=== PATIENT | male | born 1960 | race Caucasian/White ===

== ENCOUNTER → 2016-04-26 | Outpatient (CLI) | payer BC ==
--- NOTE | 2016-04-26 22:16 | XR ---
EXAMINATION TYPE: XR chest 2V DATE OF EXAM: 04/26/2016 5:32 PM COMPARISON: Prior chest x-ray June 12, 2015. HISTORY: Primary osteoarthritis per order. TECHNIQUE: Frontal and lateral views of the chest are obtained. FINDINGS: There is persistent elevated left hemidiaphragm with left basilar linear scarring. Right moy ng remains clear. No pleural effusion or pneumothorax is seen bilaterally. The cardiac silhouette si ze is within normal limits. The osseous structures are intact. IMPRESSION: Elevated left hemidiaphragm with left basilar linear scarring. No significant change vers us prior.
--- NOTE | 2016-04-26 22:18 | XR ---
EXAMINATION TYPE: XR knee complete bilateral DATE OF EXAM: 04/26/2016 5:32 PM CLINICAL HISTORY: Bilateral knee pain, primary osteoarthritis. TECHNIQUE: Weightbearing 3 views of the bilateral knees are obtained. COMPARISON: None. FINDINGS: There is no acute fracture/dislocation evident in either knee. There is moderate to advanc ed joint space loss and spurring medial tibiofemoral compartment in both knees fairly symmetric in ap pearance. There is mild to moderate joint space loss with mild spurring lateral tibiofemoral and smith llofemoral compartments in both knees. Prominent posterior phleboliths are identified. There are ciarra tional well-corticated ossific fragments could reflect product of trauma or advanced arthropathy. The overlying soft tissue appears unremarkable. IMPRESSION: There are fairly symmetric degenerative changes in both knees most pronounced at medial tibiofemoral compartments bilaterally noted.
== END | disposition home or self-care (01) ==
LOC: RADXRMAIN 17:05
PROVIDERS: ATTEND Family Medicine
DX: M25.561 Pain in right knee (principal); M25.562 Pain in left knee
CPT/HCPCS: 71020